=== PATIENT | female | born 1960 ===

== ENCOUNTER 2024-04-09 02:13 | Inpatient (IN) | payer MEDICARE, OTHER, SELFPAY ==
[2024-04-09] VITALS (11 sets, daily range): BP systolic 109–163; BP diastolic 79–114; PULSE 80–109; RESP 20–28; TEMP 36.8–37.3; O2SAT 87–96
--- NOTE | 2024-04-09 02:00 | W.PM.TELEH&P ---
Telehealth- H&P: HPI History of Present Illness Date Seen: 04/09/24 Chief complaint: Direct admit Narrative: Hanane Fields is seen as an Interactive Telehealth visit. Hanane Fields is a 63 year old female with past medical history significant for COPD, nicotine dependence, HTN, hypothyroidism, depression, PTSD and anxiety who presented to emergency department at [facility] in [facility] with complaints of shortness of breath. Patient reported her symptoms started about 5 to 6 days ago but breathing is much worse over last two days ago. Pt is not sure if she has been having fevers. NO abdominal pain. Had diarrhea 2 days ago. NO chest pain. + headache. Appetite is ok. She complained of productive cough with green sputum. On initial presentation she was hypoxic to 87% with heart rate in 110, blood pressure 153/96. Initial blood work showed hemoglobin 14.1, hematocrit 41.9, white count 13.1, platelets 180. proBNP was 36. BMP showed potassium 4.6, sodium 136, chloride 101, bicarb 22, anion gap 13, BUN 18, creatinine 1.03. Calcium 9.9, glucose 205, total protein 7.5, albumin 4.4, AST 20, a phos 47, ALT 18, troponin 7. Influenza A, B, RSV and SARS-CoV-2 were all negative. Chest x-ray showed no pneumothorax. Focal consolidation or pleural effusion. Emphysema with hyperinflation and scattered cortical scarring. Linear atelectasis/scarring left base. Normal heart size. Aortic calcification. EKG showed normal sinus rhythm with prolonged QTc when compared to the EKG of March 24, 2023. In the emergency department patient was given dexamethasone 10 mg IV, DuoNeb x 2. Review of Systems Narrative: Complete ROS was performed, pertinent positives and negatives per HPI. PFSH [facility] Social History What is your current living situation?: I presently have a place to live Problems where you live: no known problems Problems where you live details: N/A In the past 12 months, utilities in danger of being shut off: no In past 12 months, lack of transportation kept you from medical appts, meetings, work, or getting things needed for daily living: no In the past 12 mos, have been you worried that your food would run out before you had money to buy more?: never true In the past 12 mos, the food you bought just didn't last and you didn't have money to buy more?: never true Highest level of school completed/degree received: high school graduate Smoking Status: Current every day smoker What tobacco products do you use: cigarettes How often do you have a drink containing alcohol: never AUDIT-C Alcohol total score: 0 Non-prescribed substance use: denies use How often does anyone, including family, friends and others, physically hurt you: never How often does anyone, including family, friends and others, insult or talk down to you: never How often does anyone, including family, friends and others, threaten you with harm: never How often does anyone, including family, friends and others, scream or curse at you: never service: No Meds Home Medications and Allergies Allergies Allergy/AdvReac Type Severity Reaction Status Date / Time Penicillins Allergy Verified 04/09/24 01:29 Exam Narrative Exam Narrative: Physical Exam GENERAL: ?vital signs reviewed, well developed and nourished, HEENT: pupils are equal round and reactive to light, extraocular movements are grossly within normal limits and oral mucosa is moist. NECK: Supple HEART: Regular rate and rhythm without any rubs, murmurs, or gallops. LUNGS: + diffuse wheezing, + rhonchi, prolonged expiration. ABDOMEN: Observation from nurse assisted exam, abdomen appears soft, nontender, and nondistended with Positive bowel sounds noted. EXTREMITIES: Strength and sensation is observed to be grossly within normal limits in the upper and lower extremities.? No focal strength deficit is observed. SKIN:? Observed warm and dry with color normal Const Vital Signs, click to edit/add: Vital Signs - 24 hr 04/09/24 01:28 Temperature 98.9 F Pulse Rate [Left Pulse Oximeter] 97 Respiratory Rate 28 H Blood Pressure [Left Arm] 154/97 H Pulse Oximetry 91 Oxygen Delivery Method Nasal Cannula Oxygen Flow Rate 1 Assessment and Plan Assessment and plan (1) COPD exacerbation: Status: Acute (2) Nicotine dependence: Status: Acute (3) Hypothyroid: Status: Acute (4) Depression: Status: Acute (5) Anxiety: Status: Acute Plan Patient is a 63-year-old female with past medical history significant COPD who initially presented to [facility] at [place] with complaints of worsening cough and shortness of breath. Chest x-ray is negative. She does have mild leukocytosis. She is hypoxic requiring 1 L oxygen at this time. Plan - cont with duonebs prn q4 hours - start on prednisone 40 mg po daily. Pt did receive solumedrol in ED. - cont with ceftriaxone. Will switch to doxy due to prolonged qtc. - wean oxygen as tolerated. # Prolonged Qtc - check mg and phos - avoid QTc prolonging meds - desk monitor # HTN - resume lisinopril # Hypothyroidism - resume levothyroxin once home meds verified. # Anxiety # Depression # PTSD - resume home meds when verified. # DVT proph - lovenox Telehealth: Statement Statement Telehealth Visit: Today's History and Physical is provided via interactive telehealth by Tamera Aiken MD.? Patient is located at [facility].? Provider is located at [facility].? Nursing staff assisted with the patient's exam. The visit being done today meets criteria for a telehealth visit and the patient or patient?s parent/guardian is aware the visit is a telehealth visit. Camera Start Time: 02:02 Camera End Time: 02:13
[2024-04-09] MEDS: ALPRAZolam 0.25 MG TABLET PO (02:42)
[2024-04-09] MEDS: cefTRIAXone 2 GM in 0.9 % SODIUM CHLORIDE Mini-bag 100 ML IVPB (02:43)
[2024-04-09] MEDS: IPRAT-ALBUT 0.5-2.5 MG/3 ML NEB 1 NEB IH ×3 (02:43→18:49)
[2024-04-09] MEDS: 0.9 % SODIUM CHLORIDE 250 ml IV (03:08)
--- NOTE | 2024-04-09 04:51 | PC.NURSE ---
Shift note: Patient arrived to the floor at 0100 by the EMS from [place] as direct admission. She was referred to the unit from [place] at [place] due shortage of bed. Patient was conscious, alert and oriented but SOB. According to EMS she was on 1L of oxygen throughout the journey. She came with IV line of 20G to the right AC. O2 on arrival was 91 on 1L and has been on 1L for the rest of the night. Pt appeared anxious. She endorsed mild headache and chest tightness. Bp slightly elevated on arrival. Pt ambulated independently in room. MD review through [facility]. Ceftriaxone, Xanax and Ipratropium neb given per order. She became more relax and slept after the Xanax medication.
[2024-04-09 06:37] LABS: Basophils Percent Auto 0.4 % (0.0-3.0); Eosinophils Percent Auto 0.1 % (0.0-7.0); Hematocrit 42.7 % (33.0-51.0); Immature Granulocytes Pct Auto 1.3 %; Lymphocytes Percent Auto 15.9 % (20-44); Mean Corpuscular HGB Conc 33 gm/dL (32-36); Mean Corpuscular Hemoglobin 30 pg (26-34); Mean Corpuscular Volume 91 fL (80-100); Monocytes Percent Auto 2.2 % (0.0-11.0); Neutrophils Percent Auto 80.1 % (42.0-72.0); Platelet Count* 212 K/uL (140-440); RDW Coefficient of Variation % 13.3 % (11.5-15.5); Red Blood Count 4.68 m/uL (4.00-5.20); White Blood Count* 11.03 K/uL (4.50-11.00)
[2024-04-09 06:41] LABS: Slide Review Reflex No
[2024-04-09 06:42] LABS: Chloride* 104 mmol/L (96-114)
[2024-04-09 06:43] LABS: Sodium* 138 mmol/L (135-149)
[2024-04-09 06:45] LABS: Anion Gap 14 mEq/L (7-15); Carbon Dioxide* 20 mmol/L (20-32); Creatinine* 0.8 mg/dL (0.5-1.5); Est. Creatinine Clearance* 52.49; Estimated Glomerular Filt Rate 83 ml/min
[2024-04-09 06:46] LABS: Blood Urea Nitrogen* 20 mg/dL (7-30); Calcium* 9.9 mg/dL (8.4-10.6); Glucose* 154 mg/dL (60-115); Phosphorus* 2.7 mg/dL (2.5-4.5)
--- NOTE | 2024-04-09 07:38 | PM.IMPN1 ---
Progress Note: A&P Assessment and plan (1) Acute hypoxemic respiratory failure: Problem details: -acute exacerbation of known COPD -oral doxycycline after 2 g Rocephin -oral prednisone -ABG ordered -updated chest x-ray reviewed, consistent with COPD exacerbation -respiratory therapy to evaluate. jeffery Proctor Status: Acute (2) COPD exacerbation: Problem details: -as in 1. Status: Acute (3) Anxiety: Problem details: -continue home meds, p.r.n. Ativan Status: Acute (4) Hyperlipidemia: Problem details: -continue home med Status: Inactive (5) Depression: Problem details: -continue home med Status: Acute (6) Hypothyroid: Problem details: -continue home med Status: Acute (7) Nicotine dependence: Problem details: -offer nicotine patch Status: Acute Subjective Date Seen: 04/09/24 Interval history: Daily Progress Note - Hospital Medicine Day #: 1 CC: COPD exacerbation, oxygen dependent, current smoker ADMISSION - UPDATE: Hacking, anxious. following commands. states this is the sickest she has been with her COPD. Shift note: Patient arrived to the floor at 0100 by the EMS from [place] as direct admission. She was referred to the unit from [place] at [place] due shortage of bed. Patient was conscious, alert and oriented but SOB. According to EMS she was on 1L of oxygen throughout the journey. She came with IV line of 20G to the right AC. O2 on arrival was 91 on 1L and has been on 1L for the rest of the night. Pt appeared anxious. She endorsed mild headache and chest tightness. Bp slightly elevated on arrival. Pt ambulated independently in room. MD review through [facility]. Ceftriaxone, Xanax and Ipratropium neb given per order. She became more relax and slept after the Xanax medication. Notable Labs, Micro, Rads, Interventions: WBC count is down to 11.03 from 13.1 ([place]) Hematocrit is stable, platelets are stable, normal Electrolytes are normal this morning. Including renal function with a creatinine of 0.8 Glucose 154 Lung volumes are increased. Bronchial wall thickening noted bilaterally. No consolidative density. No pleural effusion or acute CHF. Cardiac silhouette is not enlarged. There is no fracture. Objective: Disheveled. Talkative but clearly anxious and tachypneic. Vitals: see above Lungs: Wheezing throughout. Rhonchi bilaterally. Cardiac: S1S2. Disposition/Potential discharge - Likely home in 1-2 days. Today I spent 50minutes seeing the patient, reviewing Expanse and EPIC notes/diagnostics, discussing the care plan with our care time that includes social work, PT/OT, pharmacy, RT, correction and documenting my impressions and plan in the medical record. Exam Const: Vital Signs, click to edit/add: Vital Signs - 24 hr 04/09/24 01:28 04/09/24 03:00 04/09/24 03:50 Temperature 98.9 F 98.9 F Pulse Rate 80 Pulse Rate [Left P ulse Oximeter] 97 90 Respiratory Rate 28 H 24 Blood Pressure [Le ft Arm] 154/97 H 139/87 Pulse Oximetry 91 91 Oxygen Delivery Me thod Nasal Cannula Nasal Cannula Oxygen Flow Rate 1 1 Labs Labs: Laboratory Results - last 24 hr 04/09/24 06:15 WBC 11.03 H RBC 4.68 Hgb 14.0 Hct 42.7 MCV 91 MCH 30 MCHC 33 RDW Coeff of Natasha 13.3 Plt Count 212 Neut % (Auto) 80.1 H Lymph % (Auto) 15.9 L [place] % (Auto) 2.2 Eos % (Auto) 0.1 Baso % (Auto) 0.4 Neut # (Auto) 8.80 H Lymph # (Auto) 1.80 [place] # (Auto) 0.20 Eos # (Auto) 0.00 Baso # (Auto) 0.00 Abs Immat Gran (auto) 0.10 Imm/Tot Granulo (auto) 1.3 Sodium 138 Potassium 5.0 Chloride 104 Carbon Dioxide 20 Anion Gap 14 BUN 20 Creatinine 0.8 Estimated Creat Clear 52.49 Estimated GFR 83 Glucose 154 H Calcium 9.9 Phosphorus 2.7 Magnesium 2.0
[2024-04-09] MEDS: predniSONE 20 MG TABLET 40 MG PO (07:59)
[2024-04-09 08:06] LABS: C Reactive Protein* 0.8 mg/dL (0.5-1.0)
[2024-04-09 08:21] LABS: Procalcitonin* 0.05 ng/mL (<0.50)
[2024-04-09] MEDS: BENZONATATE 100 MG CAPSULE PO (09:26)
[2024-04-09] MEDS: DOXYCYCLINE HYCLATE 100 MG PO ×2 (09:26→21:17)
[2024-04-09] MEDS: SODIUM CHLORIDE 0.9 % (FLUSH) 10 ML SYRINGE 5 ML IVF (09:26)
[2024-04-09 12:59] LABS: Hemoglobin A1C* 5.9 % (0-5.6)
[2024-04-09 12:59] LABS: Appearance Urine Slightly Cloudy (Clear); Bilirubin Urine Negative (Negative); Blood Urine Negative (Negative); Color Urine Light yellow (Yellow); Glucose Urine Negative (Negative); Ketones Urine Negative (Negative); Leukocyte Esterase Urine Negative (Negative); Nitrite Urine Negative (Negative); Protein Urine Negative (Negative); Specific Gravity Urine 1.025 (1.000-1.030); Urobilinogen Urine 0.2 (0.2-1.0)
[2024-04-09 13:20] LABS: RBC Urine 0-2 (0-2); WBC Urine 0-2 (0-5)
[2024-04-09] MEDS: lisinopriL 10 MG TABLET PO (13:42)
[2024-04-09] MEDS: SERTRALINE 100 MG TABLET PO (13:42)
[2024-04-09] MEDS: BUDESONIDE 0.5 MG/2ML NEB 1 MG NEB ×2 (13:42→21:16)
[2024-04-09 14:16] LABS: Legionella pneumo Ag Urine L. pneumo Negative (Negative); S pneumo Ag Urine S. pneumo Negative (Negative)
[2024-04-09 17:15] LABS: HCO3 VBG 21 mmol/L (21-28); PCO2 VBG 37 mmHG (40-50); PO2 VBG 61.2 mmHG (25-47); pH VBG 7.367 (7.32-7.43)
[2024-04-09] MEDS: ONDANSETRON 2 MG/ML inj 4 MG IVP (17:39)
[2024-04-09] MEDS: ACETAMINOPHEN 325 MG TABLET 650 MG PO (19:27)
--- NOTE | 2024-04-09 19:36 | PC.NURSE ---
Nursing Care Hours: [id number] Pt this shift tachypneic, tachycardic, and diaphoretic. All symptoms increased with exertion. Maintaining spo2 on 1L. Attempted to use the vibratory PEP with pt and after first breath, pt struggled with clearing cough and catching breath. Stone Planer assisted pt to edge of bed for tripoding and coached pt through pursed lip breathing. O2 increased to 3L, PRN neb given. After neb and pt more relaxed and breathing easier, pt laid down for a nap. During nap, communications writer titrate suppl O2 from 3 to 0.5L to keep sats between 88-91%. After nap, attempted to use vibratory PEP again but with one breath, pt again had difficulty with cough, clearing secretions and catching breath. Stone Planer instructed pt to stop using the PEP until RT can evaluate. Stone Planer also instructed pt to call for assistance with BSC and moving in room or getting needs met to avoid tachypnea and tachycardia and conserve energy. Sat up in chair later afternoon. RT evaluate and started high flow. Pt c/o gagging and nausea with high flow, treated per eMAR. Pt also states that since high flow, she feels like mucus is breaking up with coughing and is able to use vibratory PEP.
[2024-04-09] MEDS: QUETIAPINE 100 MG TABLET PO (21:17)
[2024-04-09] MEDS: ENOXAPARIN 40 MG/0.4 ML INJ SUBCUT (21:17)
[2024-04-09] MEDS: GABAPENTIN 300 MG CAPSULE PO (21:17)
[2024-04-10] VITALS (11 sets, daily range): BP systolic 109–138; BP diastolic 64–93; PULSE 85–115; RESP 24–28; TEMP 36.8–37.2; O2SAT 90–95
--- NOTE | 2024-04-10 04:55 | PC.NURSE ---
Shift note: Patient continue on the HyFlo at a rate 30L, 26, and temperature of 36 degree celsius. O2 has been between 89 and 92. Alert sand oriented. mild anxious compared to last night. Expiratory wheezing bilaterally throughout the lungs on auscultation. Scheduled Seroquel (Quetiapine) 100mg given at 2100. Patient had adequate sleep. Ambulated with SOB with 1L oxygen to the BR. Cough intermittently with SOB immediately after each cough episode. No fever, chest pain, or headache reported. Patient stated that this is the worse COPD attack of my life.
[2024-04-10 06:18] LABS: HCO3 VBG 26 mmol/L (21-28); PCO2 VBG 47 mmHG (40-50); pH VBG 7.355 (7.32-7.43)
[2024-04-10 06:33] LABS: Hemoglobin* 14.2 gm/dL (12.0-16.0); Mean Corpuscular HGB Conc 32 gm/dL (32-36); Mean Corpuscular Hemoglobin 30 pg (26-34); Mean Corpuscular Volume 92 fL (80-100); Platelet Count* 121 K/uL (140-440); Red Blood Count 4.77 m/uL (4.00-5.20); White Blood Count* 19.09 K/uL (4.50-11.00)
[2024-04-10 06:34] LABS: Slide Review Reflex No
[2024-04-10 06:51] LABS: Albumin* 4.7 g/dL (3.3-5.0); Chloride* 104 mmol/L (96-114); Sodium* 137 mmol/L (135-149)
[2024-04-10 06:54] LABS: Creatinine* 0.8 mg/dL (0.5-1.5); Est. Creatinine Clearance* 52.49; Estimated Glomerular Filt Rate 83 ml/min
[2024-04-10 06:55] LABS: Anion Gap 10 mEq/L (7-15); Blood Urea Nitrogen* 31 mg/dL (7-30); Calcium* 10.1 mg/dL (8.4-10.6); Carbon Dioxide* 23 mmol/L (20-32); Glucose* 118 mg/dL (60-115); Phosphorus* 4.2 mg/dL (2.5-4.5)
[2024-04-10] MEDS: LEVOTHYROXINE 125 MCG TABLET PO (07:33)
[2024-04-10] MEDS: predniSONE 20 MG TABLET 40 MG PO (07:33)
--- NOTE | 2024-04-10 09:03 | PM.IMPN1 ---
Progress Note: A&P Assessment and plan (1) Acute hypoxemic respiratory failure: Problem details: -acute exacerbation of known COPD -high flow oxygen started pm of 04/09 -oral doxycycline after 2 g Rocephin dose x 1 -oral prednisone -blood gas stable/normal. -updated chest x-ray reviewed, consistent with COPD exacerbation -respiratory therapy to evaluate. jeffery Proctor Status: Acute (2) COPD exacerbation: Problem details: -as in 1. Status: Acute (3) Anxiety: Problem details: -continue home meds, p.r.n. Ativan Status: Acute (4) Hyperlipidemia: Problem details: -continue home med Status: Inactive (5) Depression: Problem details: -continue home med Status: Acute (6) Hypothyroid: Problem details: -continue home med Status: Acute (7) Nicotine dependence: Problem details: -offer nicotine patch Status: Acute Subjective Date Seen: 04/10/24 Interval history: Daily Progress Note - Hospital Medicine Day #: 2 CC: COPD exacerbation, oxygen dependent, current smoker ADMISSION - UPDATE: slept sound on high flow oxygen supplementation hydration overnight. Vitals stable. No need for benzo's overnight. Notable Labs, Micro, Rads, Interventions: WBC 13.1 --> 11.03 --> 19.09 Hematocrit is stable, platelets are stable, normal Electrolytes are normal this morning. Including renal function with a creatinine of 0.8 Glucose 154 Objective: Resting comfortably. Minimally anxious. Vitals: see above Lungs: Scattered wheezes, decreased at the bases Cardiac: S1S2. Disposition/Potential discharge - Likely home in 1-2 days. Today I spent 50minutes seeing the patient, reviewing Expanse and EPIC notes/diagnostics, discussing the care plan with our care time that includes social work, PT/OT, pharmacy, RT, group home and documenting my impressions and plan in the medical record. Exam Const: Vital Signs, click to edit/add: Vital Signs - 24 hr 04/09/24 13:00 04/09/24 15:00 04/09/24 15:00 Temperature 98.2 F Pulse Rate Pulse Rate [Left P ulse Oximeter] 102 H 109 H 109 H Respiratory Rate 20 24 24 Blood Pressure [Le ft Arm] 109/91 H Blood Pressure [Ri ght Arm] 163/114 H 139/85 Pulse Oximetry 90 87 L Oxygen Delivery Me thod Nasal Cannula High Flow Nasal Ca nnula Oxygen Flow Rate 1 30 Fraction of Inspir ed Oxygen 26 04/09/24 15:48 04/09/24 17:48 04/09/24 19:00 Temperature Pulse Rate Pulse Rate [Left P ulse Oximeter] Respiratory Rate Blood Pressure [Le ft Arm] Blood Pressure [Ri ght Arm] Pulse Oximetry Oxygen Delivery Me thod Oxygen Flow Rate 30 Fraction of Inspir ed Oxygen 0.25 26 25 04/09/24 19:00 04/09/24 21:00 04/09/24 22:49 Temperature 98.9 F Pulse Rate 97 Pulse Rate [Left P ulse Oximeter] 97 Respiratory Rate 24 Blood Pressure [Le ft Arm] Blood Pressure [Ri ght Arm] 129/79 Pulse Oximetry 92 Oxygen Delivery Me thod High Flow Nasal Ca nnula Oxygen Flow Rate 30 Fraction of Inspir ed Oxygen 25 25 04/09/24 23:00 04/09/24 23:00 04/09/24 23:00 Temperature 98.9 F Pulse Rate Pulse Rate [Left P ulse Oximeter] 89 89 Respiratory Rate 24 24 Blood Pressure [Le ft Arm] 121/84 Blood Pressure [Ri ght Arm] 129/79 Pulse Oximetry 90 Oxygen Delivery Me thod High Flow Nasal Ca nnula Oxygen Flow Rate 30 Fraction of Inspir ed Oxygen 25 26 04/10/24 01:00 04/10/24 03:00 04/10/24 03:00 Temperature 98.2 F Pulse Rate Pulse Rate [Left P ulse Oximeter] 100 Respiratory Rate 24 Blood Pressure [Le ft Arm] Blood Pressure [Ri ght Arm] 109/64 Pulse Oximetry 92 Oxygen Delivery Me thod High Flow Nasal Ca nnula Oxygen Flow Rate 30 Fraction of Inspir ed Oxygen 26 26 26 04/10/24 04:52 04/10/24 07:36 04/10/24 07:36 Temperature 98.5 F Pulse Rate Pulse Rate [Left P ulse Oximeter] 91 Respiratory Rate 24 Blood Pressure [Le ft Arm] Blood Pressure [Ri ght Arm] 118/84 Pulse Oximetry 93 Oxygen Delivery Me thod Room Air Oxygen Flow Rate Fraction of Inspir ed Oxygen 26 26 Labs Labs: Laboratory Results - last 24 hr 04/09/24 04/09/24 04/09/24 06:15 12:35 12:40 WBC RBC Hgb Hct MCV MCH MCHC Plt Count VBG pH VBG pCO2 VBG pO2 VBG HCO3 Sodium Potassium Chloride Carbon Dioxide Anion Gap BUN Creatinine Estimated Creat Clear Estimated GFR Glucose Hemoglobin A1c 5.9 H Calcium Phosphorus Albumin Urine Color Light yellow Urine Appearance Slightly Cloudy A Urine pH 7.0 Ur Specific [place] 1.025 Urine Protein Negative Urine Glucose (UA) Negative Urine Ketones Negative Urine Blood Negative Urine Nitrite Negative Urine Bilirubin Negative Urine Urobilinogen 0.2 Ur Leukocyte Esterase Negative Urine RBC 0-2 Urine WBC 0-2 Ur Squamous Epith Cells None Urine Bacteria None Urine L. pneumophilia Ag L. pneumo Negative Urine Strep pneumoniae Ag S. pneumo Negative Lab Acknowledgement Test Added 04/09/24 04/10/24 16:56 05:45 WBC 19.09 H RBC 4.77 Hgb 14.2 Hct 44.0 MCV 92 MCH 30 MCHC 32 Plt Count 121 L VBG pH 7.367 7.355 VBG pCO2 37 L 47 VBG pO2 61.2 H 60.0 H VBG HCO3 21 26 Sodium 137 Potassium 5.0 Chloride 104 Carbon Dioxide 23 Anion Gap 10 BUN 31 H Creatinine 0.8 Estimated Creat Clear 52.49 Estimated GFR 83 Glucose 118 H Hemoglobin A1c Calcium 10.1 Phosphorus 4.2 Albumin 4.7 Urine Color Urine Appearance Urine pH Ur Specific [place] Urine Protein Urine Glucose (UA) Urine Ketones Urine Blood Urine Nitrite Urine Bilirubin Urine Urobilinogen Ur Leukocyte Esterase Urine RBC Urine WBC Ur Squamous Epith Cells Urine Bacteria Urine L. pneumophilia Ag Urine Strep pneumoniae Ag Lab Acknowledgement
[2024-04-10] MEDS: BUDESONIDE 0.5 MG/2ML NEB 1 MG NEB ×2 (09:55→21:28)
[2024-04-10] MEDS: GABAPENTIN 300 MG CAPSULE PO ×2 (09:58→21:28)
[2024-04-10] MEDS: SERTRALINE 100 MG TABLET PO (09:58)
[2024-04-10] MEDS: lamoTRIgine 100 MG TABLET 200 MG PO (09:59)
[2024-04-10] MEDS: SIMVASTATIN 40 MG TABLET PO (09:59)
[2024-04-10] MEDS: DOXYCYCLINE HYCLATE 100 MG PO ×2 (09:59→21:28)
[2024-04-10] MEDS: lisinopriL 10 MG TABLET PO (09:59)
[2024-04-10] MEDS: SODIUM CHLORIDE 0.9 % (FLUSH) 10 ML SYRINGE 5 ML IVF ×2 (10:00→21:29)
[2024-04-10] MEDS: IPRAT-ALBUT 0.5-2.5 MG/3 ML NEB 1 NEB IH ×2 (12:35→15:53)
--- NOTE | 2024-04-10 18:31 | PC.NURSE ---
shift note: pt maintains 90-92% on hiflo. pt able to cough moderate amounts of thick white phlegm. prn Neb x2 given for sob. IV patent. vss stable
[2024-04-10] MEDS: ENOXAPARIN 40 MG/0.4 ML INJ SUBCUT (21:28)
[2024-04-10] MEDS: QUETIAPINE 100 MG TABLET PO (21:28)
[2024-04-11] VITALS (18 sets, daily range): BP systolic 100–142; BP diastolic 60–97; PULSE 73–117; RESP 20–24; TEMP 36.7–37.3; O2SAT 87–93
--- NOTE | 2024-04-11 06:10 | PC.NURSE ---
Shift note: Pt continue on the HyFlo at 30L, 25, and 36 degree celsius. O2 has been between 89 and 92%. Alert and oriented. Patient had adequate sleep. Vitally stable.
[2024-04-11 06:26] LABS: HCO3 VBG 26 mmol/L (21-28); PCO2 VBG 45 mmHG (40-50); PO2 VBG 61.7 mmHG (25-47); pH VBG 7.367 (7.32-7.43)
[2024-04-11 06:32] LABS: Hematocrit 43.7 % (33.0-51.0); Hemoglobin* 14.2 gm/dL (12.0-16.0); Mean Corpuscular HGB Conc 33 gm/dL (32-36); Mean Corpuscular Hemoglobin 30 pg (26-34); Mean Corpuscular Volume 93 fL (80-100); Platelet Count* 107 K/uL (140-440); Red Blood Count 4.72 m/uL (4.00-5.20); White Blood Count* 18.16 K/uL (4.50-11.00)
[2024-04-11 06:33] LABS: Slide Review Reflex No
[2024-04-11 06:52] LABS: Chloride* 102 mmol/L (96-114); Sodium* 136 mmol/L (135-149)
[2024-04-11 06:53] LABS: Albumin* 4.5 g/dL (3.3-5.0); Potassium* 4.8 mmol/L (3.6-5.1)
[2024-04-11 06:56] LABS: Anion Gap 10 mEq/L (7-15); Blood Urea Nitrogen* 33 mg/dL (7-30); Carbon Dioxide* 24 mmol/L (20-32); Creatinine* 0.8 mg/dL (0.5-1.5); Est. Creatinine Clearance* 52.49; Estimated Glomerular Filt Rate 83 ml/min; Glucose* 112 mg/dL (60-115); Phosphorus* 3.8 mg/dL (2.5-4.5)
[2024-04-11] MEDS: SERTRALINE 100 MG TABLET PO (08:32)
[2024-04-11] MEDS: LEVOTHYROXINE 125 MCG TABLET PO (08:32)
[2024-04-11] MEDS: lisinopriL 10 MG TABLET PO (08:32)
[2024-04-11] MEDS: predniSONE 20 MG TABLET 40 MG PO (08:32)
[2024-04-11] MEDS: BUDESONIDE 0.5 MG/2ML NEB 1 MG NEB ×2 (08:32→21:10)
[2024-04-11] MEDS: SIMVASTATIN 40 MG TABLET PO (08:32)
[2024-04-11] MEDS: GABAPENTIN 300 MG CAPSULE PO ×2 (08:32→21:10)
[2024-04-11] MEDS: DOXYCYCLINE HYCLATE 100 MG PO ×2 (08:32→21:10)
[2024-04-11] MEDS: SODIUM CHLORIDE 0.9 % (FLUSH) 10 ML SYRINGE 5 ML IVF ×2 (08:33→21:11)
[2024-04-11] MEDS: lamoTRIgine 100 MG TABLET 200 MG PO (08:36)
[2024-04-11] MEDS: GUAIF/DM 200-20 MG/20 ML 118 ML LIQUID 10 ML PO ×3 (09:27→21:12)
--- NOTE | 2024-04-11 09:31 | PM.IMPN1 ---
Progress Note: A&P Assessment and plan (1) Acute hypoxemic respiratory failure: Problem details: -acute exacerbation of known COPD -high flow oxygen started pm of 04/09 -oral doxycycline after 2 g Rocephin dose x 1 -oral prednisone -blood gas stable/normal. -updated chest x-ray reviewed, consistent with COPD exacerbation -respiratory therapy to wean from HFO2; resp hygiene and continue nebs/aerobika. Status: Acute (2) COPD exacerbation: Problem details: -as in 1. Status: Acute (3) Anxiety: Problem details: -continue home meds, p.r.n. Ativan Status: Acute (4) Hyperlipidemia: Problem details: -continue home med Status: Inactive (5) Depression: Problem details: -continue home med Status: Acute (6) Hypothyroid: Problem details: -continue home med Status: Acute (7) Nicotine dependence: Problem details: -offer nicotine patch Status: Acute Subjective Date Seen: 04/11/24 Interval history: Daily Progress Note - Hospital Medicine Day #: 3 CC: COPD exacerbation, oxygen dependent, current smoker ADMISSION - UPDATE: slept well on high flow oxygen supplementation Notable Labs, Micro, Rads, Interventions: WBC 13.1 --> 11.03 --> 19.09 --> 18.16 Hematocrit is stable, platelets are stable, normal Electrolytes are normal this morning. Including renal function with a creatinine of 0.8 Glucose 154 Objective: Resting comfortably. Minimally anxious. Vitals: see above Lungs: lung sounds are improved; better aeration. Cardiac: S1S2. Disposition/Potential discharge - Likely home in 1-2 days. Today I spent 50minutes seeing the patient, reviewing Expanse and EPIC notes/diagnostics, discussing the care plan with our care time that includes social work, PT/OT, pharmacy, RT, residential and documenting my impressions and plan in the medical record. Exam Const: Vital Signs, click to edit/add: Vital Signs - 24 hr 04/10/24 12:28 04/10/24 13:39 04/10/24 15:00 Temperature 98.4 F Pulse Rate Pulse Rate [Left P ulse Oximeter] 115 H Respiratory Rate 26 H Blood Pressure [Le ft Arm] Blood Pressure [Ri ght Arm] 123/89 Pulse Oximetry 95 Oxygen Delivery Me thod High Flow Nasal Ca nnula Oxygen Flow Rate 30 30 Fraction of Inspir ed Oxygen 25 25 26 04/10/24 15:00 04/10/24 15:36 04/10/24 17:00 Temperature 98.3 F Pulse Rate 90 Pulse Rate [Left P ulse Oximeter] 104 H Respiratory Rate 28 H Blood Pressure [Le ft Arm] Blood Pressure [Ri ght Arm] 122/74 Pulse Oximetry 90 Oxygen Delivery Me thod High Flow Nasal Ca nnula Oxygen Flow Rate 30 Fraction of Inspir ed Oxygen 25 25 04/10/24 19:00 04/10/24 19:00 04/10/24 23:00 Temperature 98.9 F Pulse Rate Pulse Rate [Left P ulse Oximeter] 93 Respiratory Rate 28 H Blood Pressure [Le ft Arm] 131/93 H Blood Pressure [Ri ght Arm] Pulse Oximetry 90 Oxygen Delivery Me thod High Flow Nasal Ca nnula Oxygen Flow Rate 30 Fraction of Inspir ed Oxygen 25 25 25 04/10/24 23:00 04/10/24 23:00 04/11/24 00:18 Temperature 98.9 F Pulse Rate 80 Pulse Rate [Left P ulse Oximeter] 85 85 Respiratory Rate 28 H 28 H Blood Pressure [Le ft Arm] 138/82 Blood Pressure [Ri ght Arm] Pulse Oximetry 90 Oxygen Delivery Me thod High Flow Nasal Ca nnula Oxygen Flow Rate 30 Fraction of Inspir ed Oxygen 25 04/11/24 01:00 04/11/24 03:00 04/11/24 03:00 Temperature 98.7 F Pulse Rate Pulse Rate [Left P ulse Oximeter] 82 Respiratory Rate 24 Blood Pressure [Le ft Arm] Blood Pressure [Ri ght Arm] 100/60 Pulse Oximetry 89 Oxygen Delivery Me thod High Flow Nasal Ca nnula Oxygen Flow Rate 30 Fraction of Inspir ed Oxygen 25 25 04/11/24 05:00 04/11/24 08:24 04/11/24 08:24 Temperature Pulse Rate Pulse Rate [Left P ulse Oximeter] 90 Respiratory Rate 24 Blood Pressure [Le ft Arm] Blood Pressure [Ri ght Arm] Pulse Oximetry Oxygen Delivery Me thod Oxygen Flow Rate Fraction of Inspir ed Oxygen 25 04/11/24 08:24 Temperature 98.0 F Pulse Rate Pulse Rate [Left P ulse Oximeter] 90 Respiratory Rate 24 Blood Pressure [Le ft Arm] 142/88 H Blood Pressure [Ri ght Arm] Pulse Oximetry 92 Oxygen Delivery Me thod High Flow Nasal Ca nnula Oxygen Flow Rate 30 Fraction of Inspir ed Oxygen 25 Labs Labs: Laboratory Results - last 24 hr 04/11/24 05:44 WBC 18.16 H RBC 4.72 Hgb 14.2 Hct 43.7 MCV 93 MCH 30 MCHC 33 Plt Count 107 L VBG pH 7.367 VBG pCO2 45 VBG pO2 61.7 H VBG HCO3 26 Sodium 136 Potassium 4.8 Chloride 102 Carbon Dioxide 24 Anion Gap 10 BUN 33 H Creatinine 0.8 Estimated Creat Clear 52.49 Estimated GFR 83 Glucose 112 Calcium 10.0 Phosphorus 3.8 Albumin 4.5
[2024-04-11] MEDS: 0.9 % SODIUM CHLORIDE 250 ml 250 ML IV (11:45)
[2024-04-11] MEDS: IPRAT-ALBUT 0.5-2.5 MG/3 ML NEB 1 NEB IH ×2 (13:59→19:44)
--- NOTE | 2024-04-11 18:55 | PC.NURSE ---
Nursing Care Hours: [id number] Pt this shift calm and cooperative. Alert and oriented. Independent ambulation to BR in the room. HR reaching 150's with activity. 250ml bolus NS given and PRN neb given. HR improved with activity reaching max 120bpm. Pt reports coughing up mucus still but with difficulty. Guaifenesin given and effective and making coughing easier per pt. High flow titrated to room air and kept in use for humidity and air flow. Pt took a shower this shift, tolerated activity well. Pt walking in the room periodically and using IS and Aerobika frequently. Overall pt reports feeling better and having an easier time coughing and recovering from activity.
[2024-04-11] MEDS: QUETIAPINE 100 MG TABLET PO (21:10)
[2024-04-11] MEDS: ENOXAPARIN 40 MG/0.4 ML INJ SUBCUT (21:11)
[2024-04-12] VITALS (7 sets, daily range): BP systolic 122–127; BP diastolic 85–87; PULSE 78–88; RESP 22; TEMP 36.4–37.1; O2SAT 88–93
[2024-04-12] MEDS: IPRAT-ALBUT 0.5-2.5 MG/3 ML NEB 1 NEB IH ×2 (01:57→07:46)
--- NOTE | 2024-04-12 04:46 | PC.NURSE ---
[id number]: Patient pleasant and cooperative. Denies pain. Maintained O2 sats 88-90% on HFNC 30L 21%. Intermittent productive cough. Patient using Aerobika independently. PRN nebs utilized. Patient independent in room. Resting HR 80-90's, HR increases w/activity to 110-115 but comes down within a couple minutes to resting level. Denies N/V/CP.
[2024-04-12 06:47] LABS: HCO3 VBG 26 mmol/L (21-28); PCO2 VBG 42 mmHG (40-50); PO2 VBG 69.9 mmHG (25-47); pH VBG 7.401 (7.32-7.43)
[2024-04-12 06:59] LABS: Hematocrit 41.6 % (33.0-51.0); Hemoglobin* 13.5 gm/dL (12.0-16.0); Mean Corpuscular HGB Conc 33 gm/dL (32-36); Mean Corpuscular Hemoglobin 30 pg (26-34); Mean Corpuscular Volume 92 fL (80-100); Platelet Count* 71 K/uL (140-440); Red Blood Count 4.53 m/uL (4.00-5.20); White Blood Count* 17.54 K/uL (4.50-11.00)
[2024-04-12 07:04] LABS: Slide Review Reflex No
[2024-04-12 07:06] LABS: Albumin* 4.3 g/dL (3.3-5.0); Chloride* 102 mmol/L (96-114); Sodium* 135 mmol/L (135-149)
[2024-04-12 07:07] LABS: Potassium* 4.5 mmol/L (3.6-5.1)
[2024-04-12 07:09] LABS: Anion Gap 9 mEq/L (7-15); Carbon Dioxide* 24 mmol/L (20-32); Creatinine* 0.7 mg/dL (0.5-1.5); Est. Creatinine Clearance* 52.49; Estimated Glomerular Filt Rate 98 ml/min
[2024-04-12 07:10] LABS: Blood Urea Nitrogen* 30 mg/dL (7-30); Calcium* 9.8 mg/dL (8.4-10.6); Glucose* 95 mg/dL (60-115); Phosphorus* 3.6 mg/dL (2.5-4.5)
[2024-04-12] MEDS: predniSONE 20 MG TABLET 40 MG PO (07:44)
[2024-04-12] MEDS: LEVOTHYROXINE 125 MCG TABLET PO (07:44)
[2024-04-12] MEDS: lamoTRIgine 100 MG TABLET 200 MG PO (09:19)
[2024-04-12] MEDS: lisinopriL 10 MG TABLET PO (09:20)
[2024-04-12] MEDS: GABAPENTIN 300 MG CAPSULE PO (09:20)
[2024-04-12] MEDS: SIMVASTATIN 40 MG TABLET PO (09:20)
[2024-04-12] MEDS: BUDESONIDE 0.5 MG/2ML NEB 1 MG NEB (09:20)
[2024-04-12] MEDS: DOXYCYCLINE HYCLATE 100 MG PO (09:20)
[2024-04-12] MEDS: SERTRALINE 100 MG TABLET PO (09:20)
--- NOTE | 2024-04-12 09:27 | PM.DS1 ---
DS: Providers Provider Date Seen: 04/12/24 Date of admission: 04/09/24 02:13 Primary care physician: Not a Local Provider Admitting Clinician: Tamera iAken MD Consults: 04/09/24 07:35 Consult to Respiratory Therapy [CONS] Urgent Comment: Reason(s) for RT Consult:: Consult Attending Physician on discharge: Radha Girard MD DS: Diagnosis Discharge Diagnosis (1) Acute hypoxemic respiratory failure: Status: Acute Problem details: -acute exacerbation of known COPD -high flow oxygen started pm of 04/09, weaned until she is on FiO2 of 21% and stopped, stable O2 Sat above 88%, able to walk around holding good O2 saturation. -oral doxycycline after 2 g Rocephin dose x 1 -oral prednisone -blood gas stable/normal. -updated chest x-ray reviewed, consistent with COPD exacerbation -respiratory therapy: resp hygiene and continue nebs/aerobika. -DC home , no O2 needed, complete prednisone + Doxy courses at home. (2) COPD exacerbation: Status: Acute Problem details: -as in 1. (3) Anxiety: Status: Acute Problem details: -continue home meds, p.r.n. Ativan (4) Hyperlipidemia: Status: Inactive Problem details: -continue home med (5) Depression: Status: Acute Problem details: -continue home med (6) Hypothyroid: Status: Acute Problem details: -continue home med (7) Nicotine dependence: Status: Acute Problem details: -offer nicotine patch DS: Summary Hospital Course Hospital Course: Hanane Fields is seen as an Interactive Telehealth visit. Hanane Fields is a 63 year old female with past medical history significant for COPD, nicotine dependence, HTN, hypothyroidism, depression, PTSD and anxiety who presented w/ SOB and wheezing and found to be in acute exacerbation of known COPD, at the beginneing, pt needed high flow oxygen started pm of 04/09, weaned until she is on FiO2 of 21% and stopped, stable O2 Sat above 88%, able to walk around holding good O2 saturation. Pt was started on oral doxycycline after 2 g Rocephin dose x 1 + oral prednisone. Respiratory therapy consulted for resp hygiene and nebs/aerobika. Pt improved immensely and will DC home , no O2 needed, to complete prednisone + Doxy courses at home. Counseled on quitting smoking and compliance on daily inhalers to treat COPD. Status at Discharge Functional status at discharge: independent ambulation Overall status at discharge: patient is progressing back to baseline Time Spent with Patient Time attestation: Total time spent providing and/or coordinating discharge services: 45 min Exam Narrative: Exam Narrative: Physical exam GENERAL: Comfortable, no acute distress, able to finish complete sentences. HEAD AND NECK: Atraumatic, normocephalic CARDIOVASCULAR: RRR. Normal S1, S2. No murmurs. RESPIRATORY: Wheezes on auscultation B/L. Good air entry B/L. NEUROLOGY: Alert, awake, oriented X 3. Normal speech. PSYCH: Normal mood, normal affect. Const: Vital Signs, click to edit/add: Vital Signs - 24 hr 04/11/24 10:00 04/11/24 11:00 04/11/24 12:00 Temperature Pulse Rate Pulse Rate [Left P ulse Oximeter] 117 H Respiratory Rate 21 Blood Pressure [Le ft Arm] Blood Pressure [Ri ght Arm] 133/80 Pulse Oximetry 87 L Oxygen Delivery Me thod High Flow Nasal Ca nnula Oxygen Flow Rate 30 Fraction of Inspir ed Oxygen 25 21 21 04/11/24 14:00 04/11/24 15:00 04/11/24 15:00 Temperature Pulse Rate Pulse Rate [Left P ulse Oximeter] 117 H 96 Respiratory Rate 21 20 Blood Pressure [Le ft Arm] Blood Pressure [Ri ght Arm] 124/83 Pulse Oximetry 91 Oxygen Delivery Me thod Room Air High Flow Nasal Cannula Oxygen Flow Rate 30 Fraction of Inspir ed Oxygen 21 21 04/11/24 16:00 04/11/24 17:08 04/11/24 19:35 Temperature Pulse Rate Pulse Rate [Left P ulse Oximeter] Respiratory Rate Blood Pressure [Le ft Arm] Blood Pressure [Ri ght Arm] Pulse Oximetry Oxygen Delivery Me thod Oxygen Flow Rate 30 Fraction of Inspir ed Oxygen 21 0.21 21 04/11/24 19:35 04/11/24 20:06 04/11/24 21:18 Temperature 99.2 F Pulse Rate Pulse Rate [Left P ulse Oximeter] 110 H 92 Respiratory Rate 24 Blood Pressure [Le ft Arm] 139/97 H Blood Pressure [Ri ght Arm] Pulse Oximetry Oxygen Delivery Me thod High Flow Nasal Ca nnula Oxygen Flow Rate Fraction of Inspir ed Oxygen 21 04/11/24 22:19 04/11/24 22:19 04/11/24 23:47 Temperature 98.9 F Pulse Rate 85 Pulse Rate [Left P ulse Oximeter] 93 Respiratory Rate 22 Blood Pressure [Le ft Arm] 116/75 Blood Pressure [Ri ght Arm] Pulse Oximetry 90 Oxygen Delivery Me thod High Flow Nasal Ca nnula Oxygen Flow Rate 30 Fraction of Inspir ed Oxygen 21 21 04/11/24 23:48 04/12/24 00:51 04/12/24 01:55 Temperature 98.7 F Pulse Rate Pulse Rate [Left P ulse Oximeter] 78 Respiratory Rate 22 22 Blood Pressure [Le ft Arm] 122/85 Blood Pressure [Ri ght Arm] Pulse Oximetry 90 Oxygen Delivery Me thod High Flow Nasal Ca nnula Oxygen Flow Rate 30 Fraction of Inspir ed Oxygen 21 04/12/24 03:00 04/12/24 05:00 04/12/24 07:00 Temperature Pulse Rate 82 Pulse Rate [Left P ulse Oximeter] Respiratory Rate Blood Pressure [Le ft Arm] Blood Pressure [Ri ght Arm] Pulse Oximetry Oxygen Delivery Me thod Oxygen Flow Rate Fraction of Inspir ed Oxygen 21 04/12/24 07:00 04/12/24 07:41 04/12/24 09:00 Temperature 97.5 F L Pulse Rate Pulse Rate [Left P ulse Oximeter] 88 Respiratory Rate 22 Blood Pressure [Le ft Arm] Blood Pressure [Ri ght Arm] 127/87 Pulse Oximetry 93 Oxygen Delivery Me thod High Flow Nasal Ca nnula Oxygen Flow Rate 30 Fraction of Inspir ed Oxygen 21 21 DS: Data Data Completed and Pending Labs on day of discharge: Labs from last 24 hours 04/12/24 05:49 WBC 17.54 H RBC 4.53 Hgb 13.5 Hct 41.6 MCV 92 MCH 30 MCHC 33 Plt Count 71 L VBG pH 7.401 VBG pCO2 42 VBG pO2 69.9 H VBG HCO3 26 Sodium 135 Potassium 4.5 Chloride 102 Carbon Dioxide 24 Anion Gap 9 BUN 30 Creatinine 0.7 Estimated Creat Clear 52.49 Estimated GFR 98 Glucose 95 Calcium 9.8 Phosphorus 3.6 Albumin 4.3 Discharge Plan Discharge Disposition: Home, Self-Care Date of Admission: 04/09/24 02:13 Attending Provider on Discharge: Radha Girard Primary Care Provider: Provider,Not a Local Condition: Improved Anticipated Discharge Date/Time: 04/12/24 09:39 Discharge Medications: New prednisone 20 mg Tablet 40 mg PO DAILYWM 1 Days Qty: 1 0RF doxycycline hyclate 100 mg Tablet 100 mg PO BID 4 Days Qty: 7 0RF Stiolto Respimat 2.5-2.5 mcg/actuation mist 2 puff inhalation DAILY 30 Days Qty: 4 2RF Continued gabapentin 600 mg tablet 600 mg PO 3XD lamotrigine 200 mg tablet 200 mg PO DAILY sertraline 100 mg tablet 100 mg PO DAILY quetiapine 100 mg tablet 100 mg PO DAILY simvastatin 40 mg tablet 40 mg PO DAILY levothyroxine 125 mcg tablet 125 mcg PO DAILY lisinopril 10 mg tablet 10 mg PO DAILY sertraline 25 mg tablet 25 mg PO DAILY albuterol sulfate [Ventolin HFA] 90 mcg/actuation HFA aerosol inhaler 2 puff INHALATION Q6H PRN Patient Comments: [NO ORIGINAL SIG] Arnuity Ellipta 100 mcg/actuation blister with device 1 inh INHALATION DAILY Discharge Orders: Discharge Order (Routine); Ordered 04/12/24 Ordered By: Radha Girard Patient Education: COPD (Chronic Obstructive Pulmonary Disease) (IP) Additional Instructions: The need to complete oral steroid and antibiotic course Need to be compliant on daily inhalers for COPD treatment Follow-up with primary care physician in 1 week Need to work on quitting smoking Activity Level: Activity as Tolerated Discharge Diet: Heart Healthy (2 gm sodium, low fat) Follow Up Appointments: Provider,Not a Local [Primary Care Provider] - Forms: ShopReply Info Instructions
--- NOTE | 2024-04-12 12:33 | PC.NURSE ---
shift note: IV dc'd intact. reviewed dc instructions and copies sent with pt at dc. Belongings reviewed and sent with pt at dc.
== END 2024-04-12 12:33 | disposition home or self-care (01) | DRG 189 ==
LOC: MS OUT 02:24 → MEDSURG 02:24
PROVIDERS: Family Medicine; Admitting Provider Internal Medicine; Visit Provider Family Medicine
DX: J96.01 Acute respiratory failure with hypoxia (principal); J44.1 Chronic obstructive pulmonary disease with (acute) exacerbation; R94.31 Abnormal electrocardiogram [ECG] [EKG]; I10 Essential (primary) hypertension; F32.A Depression, unspecified; F41.9 Anxiety disorder, unspecified; F43.10 Post-traumatic stress disorder, unspecified; F17.210 Nicotine dependence, cigarettes, uncomplicated; E03.9 Hypothyroidism, unspecified; E78.5 Hyperlipidemia, unspecified
CPT/HCPCS: 36415; 36600; 71046; 80048; 80069; 81001; 82803; 83036; 83735; 84100; 84145; 85025; 85027; 86140; 87449; 87899; 94640; 94664; A9270; J0696; J1650; J2405; J7050; J7512; J7626